=== PATIENT | male | born 1980 | race Two or more races ===

== ENCOUNTER 2018-12-15 16:55 | Emergency (ER) | payer SELFPAY ==
[2018-12-15] MEDS ORDERED: OXYCODONE HCL IR 5 MG TABLET PO ONE (17:21)
--- NOTE | 2018-12-15 17:35 | RADIOLOGY REPORT (SQ) ---
EXAM DESCRIPTION: ELBOW LEFT OVER 2 VIEWS; FOREARM LEFT COMPLETED DATE/TIME: 12/15/2018 5:23 pm REASON FOR STUDY: elbow pain er 13; er 13 fall COMPARISON: None. NUMBER OF VIEWS: Four views. TECHNIQUE: AP and lateral radiographic images acquired of the left forearm and left elbow. LIMITATIONS: None. FINDINGS: MINERALIZATION: Normal. BONES: Posterior dislocation of the elbow. No fracture is identified. JOINT: Joint effusion. SOFT TISSUES: No foreign body. OTHER: No other significant finding. IMPRESSION: Posterior elbow dislocation. TECHNICAL DOCUMENTATION: JOB ID: [id number] [employer]- All Rights Reserved Reading location - IP/workstation name: [email or web address]
--- NOTE | 2018-12-15 17:35 | RADIOLOGY REPORT (SQ) ---
EXAM DESCRIPTION: ELBOW LEFT OVER 2 VIEWS; FOREARM LEFT COMPLETED DATE/TIME: 12/15/2018 5:23 pm REASON FOR STUDY: elbow pain er 13; er 13 fall COMPARISON: None. NUMBER OF VIEWS: Four views. TECHNIQUE: AP and lateral radiographic images acquired of the left forearm and left elbow. LIMITATIONS: None. FINDINGS: MINERALIZATION: Normal. BONES: Posterior dislocation of the elbow. No fracture is identified. JOINT: Joint effusion. SOFT TISSUES: No foreign body. OTHER: No other significant finding. IMPRESSION: Posterior elbow dislocation. TECHNICAL DOCUMENTATION: JOB ID: [id number] [employer]- All Rights Reserved Reading location - IP/workstation name: [email or web address]
[2018-12-15] MEDS ORDERED: PROPOFOL INJ 200 MG/20 ML VIAL IV ONE (18:07)
[2018-12-15] MEDS ORDERED: FENTANYL CITRATE INJ/PF 100 MCG/2 ML AMPUL IV ONE (18:07)
--- NOTE | 2018-12-15 18:10 | ER Document Report ---
ED General - General Chief Complaint: Arm Injury Stated Complaint: SHOULDER INJURY Time Seen by Provider: 12/15/18 17:59 Primary Care Provider: SERG CHEATHAM DO [ACTIVE STAFF] - Follow up in 3-5 days Mode of Arrival: Ambulatory Information source: Patient, Emergency Med Personnel Notes: 38-year-old male with no reported past medical history presents via EMS after a slip and fall just prior to arrival. Patient currently complaining of left elbow pain. He states that just prior to arrival he was fishing when he began walking he slipped falling with his arm outstretched behind him. He is describing throbbing, severe pain. Patient denies head injury, loss of consciousness. He does admit to drinking a few beers prior to arrival. His last meal was 7 hours prior to arrival. - HPI Onset: Just prior to arrival Onset/Duration: Sudden Quality of pain: Throbbing Severity: Moderate Pain Level: 3 Associated symptoms: None Exacerbated by: Movement Relieved by: Denies Similar symptoms previously: No Recently seen / treated by doctor: No - Related Data Allergies/Adverse Reactions: No Known Allergies Allergy (Verified 02/23/13 16:03) Past Medical History - General Information source: Patient, Emergency Med Personnel, [facility] Records - Social History Smoking Status: Current Every Day Smoker Cigarette use (# per day): Yes - 15 Smoking Education Provided: Yes - Smoking cessation counseling was provided for 4 minutes at the bedside Frequency of alcohol use: Occasional Drug Abuse: None Lives with: Family Family History: Reviewed & Not Pertinent Patient has suicidal ideation: No Patient has homicidal ideation: No Pulmonary Medical History: Reports: Hx Asthma Renal/ Medical History: Denies: Hx Peritoneal Dialysis - Immunizations Hx Diphtheria, Pertussis, Tetanus Vaccination: Yes Review of Systems - Review of Systems Notes: REVIEW OF SYSTEMS: CONSTITUTIONAL : Denies fever, chills, or sweats. Denies recent illness. Denies weight loss, recent hospitalizations. EENT: Denies visual changes, eye pain. Denies sore throat, oral lesions, difficulty swallowing. CARDIOVASCULAR: Denies chest pain. Denies palpitations. Denies lower extremity edema. RESPIRATORY: Denies cough. Denies shortness of breath, wheezing. GASTROINTESTINAL: Denies abdominal pain or distention. Denies nausea, vomiting, or diarrhea. Denies blood in vomitus, stools, or per rectum. Denies black, tarry stools. Denies constipation. GENITOURINARY: Denies difficulty urinating, painful urination, frequency, blood in urine, testicular pain or penile discharge. MUSCULOSKELETAL: Denies back or neck pain or stiffness. SKIN: Denies rash, lesions or sores. HEMATOLOGIC : Denies easy bruising or bleeding. LYMPHATIC: Denies swollen glands. NEUROLOGICAL: Denies confusion or altered mental status. Denies loss of consciousness. Denies dizziness or lightheadedness. Denies headache. Denies weakness or paralysis. Denies problems difficulty with ambulation, slurred speech. Denies sensory loss, numbness, or tingling. Denies seizures. PSYCHIATRIC: Denies anxiety or stress. Denies depression, suicidal ideation, or Physical Exam - Vital signs Vitals: Temp Pulse Resp BP Pulse Ox 98.0 F 70 18 135/92 H 99 12/15/18 17:05 12/15/18 17:05 12/15/18 17:05 12/15/18 17:05 12/15/18 17:05 - Notes Notes: PHYSICAL EXAMINATION: GENERAL: Well-appearing, well-nourished and in no acute distress. HEAD: Atraumatic, normocephalic. EYES: Pupils equal round and reactive to light, extraocular movements intact, sclera anicteric, conjunctiva are normal. ENT: Nares patent, oropharynx clear without exudates. Moist mucous membranes. NECK: Normal range of motion, supple without lymphadenopathy LUNGS: Breath sounds clear to auscultation bilaterally and equal. No wheezes rales or rhonchi. HEART: Regular rate and rhythm without murmurs ABDOMEN: Soft, nontender, nondistended abdomen. No guarding, no rebound. No masses appreciated. Musculoskeletal: Obvious deformity of left elbow. Faint radial pulse. Sensation decreased. Cap refill greater than 3 seconds. NEUROLOGICAL: Cranial nerves grossly intact. Normal speech, normal gait. Normal sensory, motor exams PSYCH: Normal mood, normal affect. SKIN: Warm, Dry, normal turgor, no rashes or lesions noted. Course - Re-evaluation Re-evalutation: 12/15/18 22:55 Elbow X-Ray 12/15/18 00:00 IMPRESSION: Normal alignment left elbow on lateral post closed reduction image. Forearm X-Ray 12/15/18 00:00 IMPRESSION: Posterior elbow dislocation. Temp Pulse Resp BP Pulse Ox 99.0 F 66 13 133/85 H 97 12/15/18 19:37 12/15/18 18:44 12/15/18 19:36 12/15/18 19:37 12/15/18 19:37 12/15/18 22:56 38-year-old male with no reported past medical history presents via EMS after a slip and fall just prior to arrival. Patient currently complaining of left elbow pain. He states that just prior to arrival he was fishing when he began walking he slipped falling with his arm outstretched behind him. Vital signs reviewed and within normal limits upon arrival. Successful reduction was performed after using fentanyl and propofol. Repeat x-rays show normal alignmen t of the left elbow. Patient was placed in a posterior splint and provided a sling. Advised to ice the area and take Motrin as needed for pain. Spoke to Dr. ashford regarding follow-up and he states that patient can be seen in the office. Patient was evaluated and treated as appropriate for the patient's presenting symptoms and complaint, with consideration of any critical or life threatening conditions that may be associated with their obtained history and exam as noted above. All results were discussed with patient. Patient provided the opportunity to ask questions, and express concerns. Patient was educated on treatments based on their presumed diagnosis as noted above. At this time we will discharge the patient with return precautions and follow-up recommendations. Verbal discharge instructions given a the bedside. Medication warnings reviewed. Patient is in agreement with this plan and has verbalized understanding of return precautions. After careful consideration I feel that that patient can be safely discharged from the emergency department, they were advised to followup with a primary care physician in 2-3 days. Dictation on this chart was performed using voice recognition software and may result in unintended grammatical, spelling, syntax or errors. - Vital Signs Vital signs: Temp Pulse Resp BP Pulse Ox 99.0 F 66 13 133/85 H 97 12/15/18 19:37 12/15/18 18:44 12/15/18 19:36 12/15/18 19:37 12/15/18 19:37 - Diagnostic Test Radiology reviewed: Image reviewed, Reports reviewed Procedures - Conscious Sedation Conscious sedation Time started: 18:51 Consent obtained: Yes Indication: Posterior elbow dislocation Last meal: 11 AM Prior complications: Procedural sedation Normal healthy pt.: P1. - ASA Classification Airway Evaluation: Normal anatomy Mallampati Classification: Class 1 Used during procedure: Suction available, IV access obtained, Pulse ox on pt., environmental monitoring technician on pt. Medications administered: Fentanyl, Diprivan I personally performed/intraservice time: Sedation, Procedure, 31-45 min Complications: No - Immobilization Left Arm Time completed: 22:58 Pre-Proc Neuro Vasc Exam: Normal Immobilizer type: Long arm posterior Performed by: PCT Post-Proc Neuro Vasc Exam: Normal Alignment checked and good: Yes - Joint Reduction/Fracture Care Left Elbow Time completed: 18:51 Consent obtained: Yes Conscious sedation: Yes Pre-procedure NV exam: Yes - Delayed cap refill, reported paresthesias Fracture: Closed Post-procedure NV exam: Yes - Cap refill less than 2 seconds, radial pulse intact. Sensation intact. Reduction attempts: 1 Complications: No Discharge - Discharge Clinical Impression: Elevated blood pressure reading Posterior dislocation of right elbow Qualifiers: Encounter type: initial encounter Qualified Code(s): S53.124A - Posterior dislocation of right ulnohumeral joint, initial encounter Fall Qualifiers: Encounter type: initial encounter Qualified Code(s): W19.XXXA - Unspecified fall, initial encounter Condition: Good Disposition: HOME, SELF-CARE Instructions: Dislocation ([facility]) Additional Instructions: Please ice your elbow. Take anti-inflammatory medication such as Motrin, Aleve or ibuprofen as needed for pain. Please return if you experience numbness, increasing pain. Prescriptions: Ibuprofen [Motrin 600 Mg Tablet] 600 mg PO TID #15 tablet Forms: Elevated Blood Pressure, Smoking Cessation Education, Return to Work Referrals: SERG CHEATHAM DO [ACTIVE STAFF] - Follow up in 3-5 days
[2018-12-15] MEDS ORDERED: HYDROCODONE/ACETAMINOPHEN 5-325 MG (6 TAB/ER DISP) PO PRN (19:18)
--- NOTE | 2018-12-15 19:24 | RADIOLOGY REPORT (SQ) ---
EXAM DESCRIPTION: ELBOW LEFT AP/LATERAL COMPLETED DATE/TIME: 12/15/2018 6:58 pm REASON FOR STUDY: post reduction COMPARISON: 12/15/2018 left elbow three views 1722 hours NUMBER OF VIEWS: Lateral views left elbow TECHNIQUE: Lateral view radiographic images acquired of the left elbow. LIMITATIONS: None. FINDINGS: Dorsal dislocation of the radius and ulna with respect to the distal humerus has been redu shan On the current single lateral film there is normal alignment of the distal humerus, and proximal radi us and ulna. There is an elbow joint effusion present. No gross fracture is identified. IMPRESSION: Normal alignment left elbow on lateral post closed reduction image. TECHNICAL DOCUMENTATION: JOB ID: [id number] [employer]- All Rights Reserved Reading location - IP/workstation name: [email or web address]
[2018-12-15 19:40] VITALS: BP 133/85
== END 2018-12-15 19:39 | disposition home or self-care (01) ==
LOC: ER 16:55
DX: S53.124A Posterior dislocation of right ulnohumeral joint, initial encounter (principal); W01.0XXA Fall on same level from slipping, tripping and stumbling without subsequent striking against object, initial encounter; Y93.19 Activity, other involving water and watercraft; R03.0 Elevated blood-pressure reading, without diagnosis of hypertension; F17.210 Nicotine dependence, cigarettes, uncomplicated; Z71.6 Tobacco abuse counseling; J45.909 Unspecified asthma, uncomplicated
CPT/HCPCS: 99283; 99153; 99152; 73070; 73080; 73090; 24600; J3010; J2704